=== PATIENT | female | born 1955 | race Caucasian/White ===

== ENCOUNTER 2016-09-10 10:46 | Observation (INO) | payer OTHER ==
[2016-09-10 10:52] VITALS: BMI 39.8
[2016-09-10] MEDS ORDERED: ASPIRIN 81 MG CHEWABLE TABLETS PO ONE (11:23)
[2016-09-10] MEDS ORDERED: ASPIRIN 81 MG CHEWABLE TABLETS ONE (11:29)
--- NOTE | 2016-09-10 11:38 | PDOC ---
History of Present Illness - General Chief Complaint: Cold Symptoms Stated Complaint: COUGH, SOB Time Seen by Provider: 09/10/16 11:07 History Source: Patient Exam Limitations: No Limitations - History of Present Illness Initial Comments: 09/10/16 11:29 61 yr female with cough for 2 weeks, sore throat on Amoxicillin 500mg for throat infection day 7. Pt states cough and chest pain this morning. Pt states "pressure" to left side of chest comes and goes, 3/10 pain presently. Pt denies fever, no nausea, no abd pain or vomiting no left arm pain. Pt states she has borderline DM, obesity, high cholesterol. 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 09/10/16 13:18 Past History - Past Medical History Allergies/Adverse Reactions: Allergies Allergy/AdvReac Type Severity Reaction Status Date / Time No Known Allergies Allergy Verified 09/10/16 10:52 Home Medications: Ambulatory Orders Amoxicillin/Potassium Clav [Amox-Clav 500-125 mg Tablet] 1 tab PO ASDIR Aspirin Coated [Ecotrin -] 81 mg PO DAILY #30 tablet.ec 09/11/16 Atorvastatin Ca [Lipitor] 20 mg NR HS #30 tablet 09/11/16 Anemia: No Asthma: No Cancer: No Cardiac Disorders: No CVA: No COPD: No CHF: No Dementia: No Diabetes: No GI Disorders: Yes Disorders: No HTN: No Hypercholesterolemia: No Liver Disease: No Suicide Attempt (Hx): No Seizures: No Thyroid Disease: No - Surgical History Abdominal Surgery: Yes (HERNIA) Appendectomy: No Cardiac Surgery: No Cholecystectomy: Yes Lung Surgery: No Neurologic Surgery: No Orthopedic Surgery: No - Immunization History Immunization Up to Date: Yes - Psycho/Social/Smoking Cessation Hx Anxiety: No Suicidal Ideation: No Smoking Status: No Smoking History: Never smoked Have you smoked in the past 12 months: No Number of Cigarettes Smoked Daily: 0 Information on smoking cessation initiated: No Hx Alcohol Use: No Drug/Substance Use Hx: No Substance Use Type: None Hx Substance Use Treatment: No *Physical Exam - Vital Signs Last Vital Signs Temp Pulse Resp BP Pulse Ox 98.3 F 83 18 135/73 99 09/10/16 10:49 09/10/16 10:49 09/10/16 10:49 09/10/16 10:49 09/10/16 10:49 - Physical Exam General Appearance: Yes: Nourished, Appropriately Dressed HEENT: positive: EOMI, GHULAM, TMs Normal, Pharyngeal Erythema, Tonsillar Erythema. negative: Tonsillar Exudate Neck: positive: Supple. negative: Tender Respiratory/Chest: positive: Lungs Clear, Normal Breath Sounds Cardiovascular: positive: Regular Rhythm, Regular Rate Gastrointestinal/Abdominal: positive: Normal Bowel Sounds, Soft Musculoskeletal: positive: Normal Inspection Extremity: positive: Normal Capillary Refill, Normal Inspection, Normal Range of Motion Integumentary: positive: Normal Color, Dry, Warm. negative: Swelling Neurologic: positive: Fully Oriented, Alert, Normal Mood/Affect, Normal Response , Motor Strength 5/5 Heart Score/ECG Review - History History: Slightly suspicious - Age Age: 45-65 - Risk Factors Risk Factors Heart Score: Yes Hx Hypercholesterolemia, Yes Hx Diabetes Based on the list above the patient has:: 1-2 risk factors - Troponin Troponin: </= normal limit - ECG Intrepretation Rhythm: Regular Rhythm (occasional PVC) - ST and T Non Specific ST-T Wave changes: Yes Comment:: 09/10/16 13:20 EKG changed from [address] abnormality ED Treatment Course - LABORATORY CBC & Chemistry Diagram: 09/10/16 11:21 09/10/16 11:45 - RADIOLOGY Radiology Studies Ordered: Category Date Time Status CHEST PA & LAT [RAD] Stat Radiology 09/10/16 11:21 Ordered Medical Decision Making - Medical Decision Making 09/10/16 11:56 cc: cough for 2 weeks on Amoxicillin for throat infection no fever or chills, no lower extremity swelling pt states today with chest pain left side "pressure, burning" non radiating, neg nausea or vomiting no arm pain or dizzyness pt took one baby ASA this AM will check labs, EKG, CXR EDAC chest pain score low risk 09/10/16 12:09 EKG is NSR with occasional PVC's non specific ST abnormality pt currently with chest pain 10/30 will obs pt 09/10/16 13:01 09/10/16 13:20 09/10/16 13:26 obs to case discussed. 09/14/16 13:36 *DC/Admit/Observation/Transfer Diagnosis at time of Disposition: Chest pain Qualifiers: Chest pain type: unspecified Qualified Code(s): R07.9 - Chest pain, unspecified - Discharge Dispostion Disposition: HOME Condition at time of disposition: Stable Admit: Yes - Prescriptions - Referrals
[2016-09-10 12:07] LABS: MCH 29.8 pg (25.7-33.7); MCHC 33.7 g/dl (32.0-36.0); MEAN CELL VOLUME 88.6 fl (80-96); MEAN PLT VOLUME 8.7 fl (7.5-11.1); PLATELET COUNT 246 K/MM3 (134-434); RDW 14.1 % (11.6-15.6); WHITE BLOOD COUNT 9.6 K/mm3 (4.0-10.0)
[2016-09-10 12:25] LABS: INR 1.04 (0.82-1.09); PROTHROMBIN TIME (PATIENT) 11.4 SEC (9.98-11.88)
[2016-09-10 12:46] LABS: ALBUMIN 3.7 g/dl (3.4-5.0); ANION GAP 5 (8-16); BILIRUBIN,TOTAL 0.4 mg/dL (0.2-1.0); CALCIUM 8.8 mg/dL (8.5-10.1); CO2 27 mmol/L (21-32); CREATININE 0.6 mg/dL (0.55-1.02); GLUCOSE,RANDOM 101 mg/dL (74-106); SGOT/AST 15 U/L (15-37); SGPT/ALT 36 U/L (12-78); TOT PROT 7.5 g/dl (6.4-8.2)
[2016-09-10 12:49] LABS: ALK PHOS 144 U/L (45-117); TROPONIN I < 0.02 ng/ml (0.00-0.05)
[2016-09-10] MEDS ORDERED: guaiFENesin 200 MG/10 ML 10 ML UNIT-DOSE CUPS PO ONE (13:01)
[2016-09-10] MEDS ORDERED: guaiFENesin/CODEINE 5 ML UNIT-DOSE CUPS PO ONE (13:13)
[2016-09-10] MEDS ORDERED: guaiFENesin 200 MG/10 ML 10 ML UNIT-DOSE CUPS ONE (13:17)
[2016-09-10] MEDS ORDERED: IBUPROFEN 400 MG TABLET (FP) PO PRN (14:10)
[2016-09-10] MEDS ORDERED: ONDANSETRON 4 MG/2 ML VIAL IVPB PRN (14:10)
--- NOTE | 2016-09-10 14:10 | HP ---
PCP: Lindsay Chadwick CHIEF COMPLAINT: Chest pain HISTORY OF PRESENT ILLNESS: This is a 61-year-old woman who comes to the ER complaining of chest pain. She says she had pain in the left side of her chest yesterday. The pain resolved without intervention. This morning, after she awoke , she again had pain in the left side of her chest. She describes the pain as pressure. She had no palpitations, shortness of breath, nausea or diaphoresis with either episode. This morning, the pain radiated to her left shoulder. She took a baby aspirin. She has not had chest pain or shortness of breath with exertion. She has had a cough for about 2 weeks and has been taking amoxicillin. She has been carrying her 5-year-old grandson. She takes omeprazole occasionally for heartburn. She reports several episodes of palpitations last year. She had a normal stress test with EF 59% in 2014. PAST MEDICAL HISTORY Hyperlipidemia PAST SURGICAL HISTORY Cholecystectomy Hernia repair Allergies No Known Allergies Allergy (Verified 09/10/16 10:52) HOME MEDICATIONS 3 Medication Instructions Recorded Amoxicillin/Potassium Clav 1 tab PO ASDIR 09/10/16 [Amox-Clav 500-125 mg Tablet] Social History: Smoking: Never smoked Alcohol: None Drugs: None Recent Travel: No Family History: (-) CAD REVIEW OF SYSTEMS CONSTITUTIONAL: Absent: fever, chills, diaphoresis, generalized weakness, malaise, loss of appetite, weight change HEENT: Absent: rhinorrhea, nasal congestion, throat pain, throat swelling, difficulty swallowing, mouth swelling, ear pain, eye pain, visual changes CARDIOVASCULAR: Present: chest pain, palpitations. Absent: syncope, lightheadedness, peripheral edema RESPIRATORY: Present: cough. Absent: shortness of breath, dyspnea with exertion , orthopnea, wheezing, stridor, hemoptysis GASTROINTESTINAL: Present: heartburn. Absent: abdominal pain, abdominal distension, nausea, vomiting, diarrhea, constipation, melena, hematochezia GENITOURINARY: Absent: dysuria, frequency, urgency, hesitancy, hematuria, flank pain MUSCULOSKELETAL: Absent: myalgia, arthralgia, joint swelling, back pain, neck pain SKIN: Absent: rash, itching, pallor HEMATOLOGIC/IMMUNOLOGIC: Absent: easy bleeding, easy bruising, lymphadenopathy, frequent infections ENDOCRINE: Absent: unexplained weight gain, unexplained weight loss, heat intolerance, cold intolerance NEUROLOGIC: Absent: headache, focal weakness, paresthesias, dizziness, unsteady gait, seizure, mental status changes, bladder or bowel incontinence PSYCHIATRIC: Absent: anxiety, depression, suicidal or homicidal ideation, hallucinations. PHYSICAL EXAMINATION Vital Signs Period Temp Pulse Resp BP Sys/[place] Pulse Ox Last 24 Hr 98.3 F 83 18 135/73 99 GENERAL: Awake, alert, and fully oriented, in no acute distress. HEAD: Normal with no signs of trauma. EYES: Pupils equal, round and reactive to light, extraocular movements intact, sclerae anicteric, conjunctivae clear. EARS, NOSE, THROAT: Ears normal, nares patent, oropharynx clear without exudates. Moist mucous membranes. NECK: Normal range of motion, supple without lymphadenopathy, JVD, or masses. LUNGS: Breath sounds equal, clear to auscultation bilaterally. No wheezes, and no crackles. No accessory muscle use. HEART: Regular rate and rhythm, normal S1 and S2 without murmur, rub or gallop. CHEST: Mild tenderness of upper left chest to palpation. ABDOMEN: Obese, soft, nontender, not distended, normoactive bowel sounds, no guarding, no rebound, no masses. No hepatomegaly or splenomegaly. MUSCULOSKELETAL: Normal range of motion at all joints. No bony deformities or tenderness. No CVA tenderness. UPPER EXTREMITIES: 2+ pulses, warm, well-perfused. No cyanosis. No clubbing. Cap refill <2 seconds. No peripheral edema. LOWER EXTREMITIES: 2+ pulses, warm, well-perfused. No calf tenderness. No peripheral edema. NEUROLOGICAL: Cranial nerves II-XII intact. Normal speech. Normal gait. PSYCHIATRIC: Cooperative. Good eye contact. Appropriate mood and affect. SKIN: Warm, dry, normal turgor, no rashes or lesions noted. Laboratory Results - last 24 hr 09/10/16 09/10/16 09/10/16 11:21 11:23 11:23 WBC 9.6 D RBC 4.68 Hgb 14.0 Hct 41.5 MCV 88.6 MCHC 33.7 RDW 14.1 Plt Count 246 MPV 8.7 INR 1.04 Sodium Potassium Chloride Carbon Dioxide Anion Gap BUN Creatinine Creat Clearance w eGFR Random Glucose Calcium Magnesium 2.5 H Total Bilirubin AST ALT Alkaline Phosphatase Creatine Kinase Troponin I Total Protein Albumin 09/10/16 11:45 WBC RBC Hgb Hct MCV MCHC RDW Plt Count MPV INR Sodium 141 Potassium 4.0 Chloride 109 H Carbon Dioxide 27 Anion Gap 5 L BUN 12 Creatinine 0.6 Creat Clearance w eGFR > 60 Random Glucose 101 Calcium 8.8 Magnesium Total Bilirubin 0.4 AST 15 D ALT 36 D Alkaline Phosphatase 144 H Creatine Kinase 76 Troponin I < 0.02 Total Protein 7.5 Albumin 3.7 EKG: Sinus rhythm, rate 84. PVCs. No ischemic changes. Chest x-ray: No acute process. 6 mm hypodense nodule in mid to lower left lung consistent with granuloma unchanged from 2013. ASSESSMENT/PLAN: This is a 61-year-old woman with a history of hyperlipidemia and obesity who came to the ER after two episodes of chest pressure. She had a normal stress test in 2014. EKG shows no acute changes. Troponin is <0.02. She is being placed in observation for further evaluation of an emergent condition. 1. Chest pain, likely musculoskeletal - HEART score is 2 - Observe on telemetry - Serial troponins - Check lipid profile - Echocardiogram 2. Hyperlipidemia - Check lipid profile 3. Obesity with BMI 39.8 Problem List - Problem (1) Hyperlipidemia Code(s): E78.5 - HYPERLIPIDEMIA, UNSPECIFIED (2) Obesity (BMI 30-39.9) Code(s): E66.9 - OBESITY, UNSPECIFIED Visit type - Emergency Visit Emergency Visit: Yes ED Registration Date: 09/10/16 Care time: The patient presented to the Emergency Department on the above date and was hospitalized for further evaluation of their emergent condition. - New Patient This patient is new to me today: Yes Date on this admission: 09/10/16 - Critical Care Critical Care patient: No
--- NOTE | 2016-09-10 15:25 | EKG ---
Test Reason : Blood Pressure : / mmHG Vent. Rate : 084 BPM Atrial Rate : 084 BPM P-R Int : 158 ms QRS Dur : 082 ms QT Int : 386 ms P-R-T Axes : 061 -13 051 degrees QTc Int : 456 ms SINUS RHYTHM WITH OCCASIONAL PREMATURE VENTRICULAR COMPLEXES WHEN COMPARED WITH ECG OF 10-NOV-2014 09:00, PREMATURE VENTRICULAR COMPLEXES ARE NOW PRESENT Confirmed by MARY MANZO MD ([id number]) on 09/10/2016 3:25:21 PM Referred By: LESLYE Confirmed By:MARY MANZO MD
[2016-09-10 15:52] LABS: CHOLESTEROL 201 mg/dL (50-200)
[2016-09-10 15:59] LABS: LDL CHOLESTEROL (ONLY SJRH) 122 mg/dL (5-100)
[2016-09-10] MEDS ORDERED: ACETAMINOPHEN 325 MG TABLET (FP) ONE (19:11)
[2016-09-10] MEDS: ACETAMINOPHEN 325 MG TABLET (FP) PO PRN (19:24)
[2016-09-10] MEDS ORDERED: INFLUENZA VACCINE 45 MCG/0.5 ML (MDV 16-17) IM ONE (20:51)
[2016-09-11] MEDS: ACETAMINOPHEN 325 MG TABLET (FP) PO PRN (00:30)
[2016-09-11] MEDS ORDERED: guaiFENesin 200 MG/10 ML 10 ML UNIT-DOSE CUPS PO PRN (00:50)
[2016-09-11] MEDS ORDERED: ATORVASTATIN CA 40 MG TABLET (FP) PO ONE (07:23)
--- NOTE | 2016-09-11 08:39 | DS ---
Physical Exam: SUBJECTIVE: Patient seen and examined. Overnight pt states she had headache, moist cough and chest discomfort that was relieved with Tylenol. This morning denies headache. She states she has mild left sided chest discomfort that is reproduced on palpation. She describes her pain as "slight discomfort" 2/10 but overall improved since admission. Denies any shortness of breath. OBJECTIVE: Vital Signs Period Temp Pulse Resp BP Sys/[place] Pulse Ox Last 24 Hr 97.9 F-99.2 F 82-90 18-18 104-134/59-79 95-96 PHYSICAL EXAM GENERAL: The patient is awake, alert, and fully oriented, in no acute distress. HEAD: Normal with no signs of trauma. EYES: conjunctiva clear. ENT: Ears normal, nares patent, oropharynx clear without exudates, moist mucous membranes. NECK: Trachea midline, full range of motion, supple. LUNGS: Breath sounds equal, clear to auscultation bilaterally, no wheezes, no crackles, no accessory muscle use. HEART: Sinus rythm with occassional PVCs on cardiac sonographer ABDOMEN: Soft, nontender, nondistended, normoactive bowel sounds, no guarding, no rebound, no hepatosplenomegaly, no masses. EXTREMITIES: no edema. NEUROLOGICAL: Normal speech, gait not observed. PSYCH: Normal mood, normal affect. SKIN: Warm, dry, normal turgor, no rashes or lesions noted. LABS Laboratory Results - last 24 hr 09/10/16 09/11/16 20:41 00:15 Troponin I < 0.02 < 0.02 HOSPITAL COURSE: Date of Admission:09/10/16 Date of Discharge: 09/11/16 Patient is a 61 year old female with a significant past medical history of hyperlipidemia, GERD, hypertension and pneumonia. She presented to the ER on 09/10/2016 with cough and intermittent chest pressure to the left side of her chest for apx 2 weeks. There is no radiation to the arm, jaw, back or any exacerbating factors. She denies nausea or diaphoresis. The pain is presently resolved. She was recently on Amoxicillin 500mg for throat infection. Pt in agreement to see her PCP and a follow up with a manager risk management upon discharge. Cardiology: Atypical chest pain - resolved Assessment/Plan: Left sided chest discomfort reproducible on palpation. Troponins negative x 3 09/10/2016 EKG sinus rhythm with occasional PVCs. PVCs now present when compared to EKG of November 10, 2014 09/10/2016 Echo trace tricuspid regurgitation Chest xray 09/10/2016 an apx 6mm hypodense nodule seen in left mid lower lung consistent w/granuloma unchanged since prior chest xray 11/17/12. No acute lung disease is present. No significant changes or acute lung disease. Will start on ASA 81mg Hyperlipidemia - chronic Assessment/Plan: Elevated triglycerides 302, cholesterol 201, LDL 122. She also is noted to have elevated BMI Counseled on losing weight, limiting the amount of carbohydrates and being more active She denies smoking. Will need a Hgba1c as outpatient Disposition: Will d/c with close follow up with PCP. She will need ongoing monitoring for her high lipids and weight control. She should also follow up with a manager risk management as outpatient. Minutes to complete discharge: 45 Discharge Summary Reason For Visit: CHEST PAIN Current Active Problems Chest pain (Acute) Hyperlipidemia (Chronic) Obesity (BMI 30-39.9) (Chronic) Condition: Stable - Instructions Diet, Activity, Other Instructions: Please see your PCP within 3-5 days after discharge for follow up. You will need to have a hemoglobin a1c test. You should also see a coil connector for weight loss, carbohydrate monitoring. Please return to the ER if you have any of the following: Shortness of breath Chest Pain Worsening headache Referrals: Lindsay Springer MD [Primary Care Provider] - Aries Somers MD [Staff Physician] - Disposition: HOME - Home Medications Comprehensive Discharge Medication List: Ambulatory Orders Amoxicillin/Potassium Clav [Amox-Clav 500-125 mg Tablet] 1 tab PO ASDIR This patient is new to me today: Yes Date on this admission: 09/11/16 Emergency Visit: Yes ED Registration Date: 09/10/16 Care time: The patient presented to the Emergency Department on the above date and was hospitalized for further evaluation of their emergent condition. Critical Care patient: No - Discharge Referral Referred to [facility] Med P.C[facility] No
[2016-09-11] MEDS ORDERED: guaiFENesin 200 MG/10 ML 10 ML UNIT-DOSE CUPS PO ONE (09:45)
[2016-09-11] MEDS ORDERED: ASPIRIN COATED 81 MG TABLET.EC PO SCH (10:00)
[2016-09-11 10:13] VITALS: BP 108/60; PULSE 84; TEMP 97.6
== END 2016-09-11 10:44 | disposition home or self-care (01) ==
LOC: JERFT 10:46 → JER 10:46 → JERBED 14:38 → J4W 20:04
PROVIDERS: ADMIT Internal Medicine; ATTEND Nurse Practitioner Family
DX: R07.89 Other chest pain (principal); E78.5 Hyperlipidemia, unspecified; E11.9 Type 2 diabetes mellitus without complications; I49.3 Ventricular premature depolarization; J84.10 Pulmonary fibrosis, unspecified; E66.9 Obesity, unspecified; Z68.39 Body mass index [BMI] 39.0-39.9, adult; I10 Essential (primary) hypertension; K21.9 Gastro-esophageal reflux disease without esophagitis
CPT/HCPCS: 36415; 71020-TC; 80053; 80061; 82550; 83721; 83735; 84484; 85027; 85610; 93005; 93010; 93306-TC; 99283-25; G0378